=== PATIENT | female | born 1980 | race Caucasian/White ===

== ENCOUNTER → 2018-05-24 | Outpatient (CLI) | payer OTHER ==
--- NOTE | 2018-05-24 09:42 | US ---
EXAM DESCRIPTION: Gall Bladder CLINICAL HISTORY: R10.814 COMPARISON: CT abdomen and pelvis September 23, 2010 TECHNIQUE: Right upper quadrant ultrasound FINDINGS: Pancreas: Visualized portions of the pancreas are unremarkable. Bowel gas obscures some areas. Aorta/inferior vena cava: No aortic aneurysm. Normal inferior vena cava. Liver: The liver is homogeneous in texture with normal echogenicity of the hepatic parenchyma. No focal liver lesion or intrahepatic bile duct dilatation. No liver surface irregularity. Normal appearance of the portal vein and hepatic veins. Gallbladder: Normal size of the gallbladder with small shadowing stones in the lumen. There may be additional tiny gallbladder polyps. Gallbladder wall thickness of 2.9 mm is at the upper limits of normal. Cholesterolosis of the gallbladder seen with ring down artifacts. No calcified stones are seen in the gallbladder on the previous CT exam from August 2010. Common bile duct: Normal caliber measuring 4.0 mm. Right kidney: Renal length is 10.3 cm. Normal cortical echogenicity. Cortical thickness is normal. No hydronephrosis is seen. No renal mass or shadowing calculus. IMPRESSION: Gallstones in the gallbladder without changes to suggest acute inflammation. Electronically signed by: Lazaro Dodge MD 05/24/2018 9:41 AM CDT
== END ==
LOC: US 08:02
PROVIDERS: ATTEND Family Medicine
DX: K80.20 Calculus of gallbladder without cholecystitis without obstruction (principal); R10.814 Left lower quadrant abdominal tenderness